=== PATIENT | female | born 2005 | race Caucasian/White ===

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

== ENCOUNTER → 2023-07-07 14:11 | Outpatient (BNVA) | payer BC, MEDICAID, SELFPAY | PROVIDERS: PCP Nurse Practitioner Family; Visit Provider Nurse Practitioner Family | DX: N92.6 Irregular menstruation, unspecified (principal) | CPT/HCPCS: 81025 ==

== ENCOUNTER 2024-02-26 21:07 | Inpatient (IN) | payer BC, MEDICAID, SELFPAY ==
[2024-02-26 19:30] VITALS: BMI 34.7
[2024-02-26 19:42] VITALS: BP 141/93; PULSE 96; TEMP 36.8
[2024-02-26 20:28] VITALS: BP 142/82; PULSE 83
[2024-02-26 20:48] VITALS: BP 135/93; PULSE 85
[2024-02-26 20:50] LABS: Nitrazine Paper, PH Positive
[2024-02-26 21:12] LABS: Basophils % 0.3 %; Eosinophils # 0.1 10^3/uL (0.0-0.8); Eosinophils % 0.5 %; Hematocrit 35.4 % (36-47); Lymphocytes # 1.7 10^3/uL (1.5-6.5); Lymphocytes % 16.5 %; Mean Corpuscular HGB Conc 33.3 g/dL (30-55); Mean Corpuscular Hemoglobin 28.1 pg (27-33); Mean Corpuscular Volume 84.3 fl (85-98); Mean Platelet Volume 11.8 fL (7.4-10.4); Monocytes # 0.9 10^3/uL (0.2-0.9); Monocytes % 8.5 %; Neutrophils # 7.35 10^3/uL (1.8-8.0); Neutrophils % 73.6 %; Nucleated Red Blood Cells % 0 %; Platelet Count 298 10^3/cmm (157-399); Red Cell Distribution Width 13.1 % (12.1-15.1); White Blood Count 9.99 10^3/uL (4.5-13.0)
[2024-02-26 21:39] VITALS: BP 138/83; PULSE 100
[2024-02-26] MEDS: miSOPROStol 100 mcg tablet 25 MCG SUBLINGUAL (21:39)
[2024-02-26 22:00] VITALS: BP 123/82; PULSE 84
[2024-02-26 23:23] VITALS: BP 133/79; PULSE 81
[2024-02-27] VITALS (37 sets, daily range): BP systolic 110–151; BP diastolic 60–90; PULSE 66–157; RESP 16–18; TEMP 36.7–36.9; O2SAT 97–99; BMI 11.5
[2024-02-27] MEDS: fentaNYL 50 mcg/mL INJ 2mL IVP (01:46)
[2024-02-27] MEDS: miSOPROStol 100 mcg tablet 25 MCG SUBLINGUAL (02:01)
[2024-02-27] MEDS: lactated ringers 1,000 ML 999 ML IV (02:45)
--- NOTE | 2024-02-27 03:42 | P.ANESASSM_ITS ---
Pre-Anesthetic Assessment Height/Weight: Height 1.78 m Weight 109.769 kg Temp Pulse Resp BP O2 Del Method 98.3 F 81 18 133/79 Room Air 02/26/24 19:42 02/26/24 23:23 02/27/24 01:46 02/26/24 23:23 02/26/24 20:40 Preop Diagnosis: labor pain epidural Was Beta Regi taken within 24 hours: N/A Was Clonidine taken within 24 hours: N/A Exam alert, oriented x 3, clear to auscultation bilaterally and regular rate & rhythm Airway Submandibular: within normal limits Cervical ROM: within normal limits Mallampati: Class II Dentition: full Pulmonary None reported CV/HEM None reported None reported Hepatic None reported GI Gastroesophageal Reflux Disease Metabolic None reported Musc/skel Scoliosis Neuropsych None reported Anesthetic Plan ASA status: 2 Anesthesia: Anesthesia Evaluation and Regional (specify below) Risk of > 500 ml blood loss (7ml/kg in children): No Medications/Allergies Home Medications Medication Instructions Recorded Confirmed Last Taken Type No Known Home Medications 04/05/23 02/26/24 Unknown History Allergies Allergy/AdvReac Type Severity Reaction Status Date / Time No Known Allergies Allergy Verified 02/26/24 22:07 Current Medications Generic Name Dose Route Start Last Admin Trade Name Freq PRN Reason Stop Dose Admin Fentanyl 25 - 100 mcg 02/27/24 01:24 02/27/24 01:46 Fentanyl 50 Mcg/Ml Inj 2ml IVP 25 mcg Q1H PRN Administration SEVERE PAIN Lactated Ringer's 1,000 mls @ 999 mls/hr 02/27/24 02:28 02/27/24 02:45 Lactated Ringers IV 999 mls/hr .Q1H1M PRN Administration See label comments Misoprostol 25 mcg 02/26/24 20:45 02/27/24 02:01 Misoprostol 100 Mcg Tablet SUBLINGUAL 02/27/24 04:46 25 mcg Q4H MICHELLE Administration PFSH Anesthesia Medical History No pertinent past medical history Surgical History No pertinent past surgical history Family History Other CAD (coronary artery disease) Diabetes Hyperlipidemia Hypertension Lung disease Stroke Denies family history of Colon cancer Ovarian cancer Prostate cancer Clotting disorder Dementia Heart disease Psychiatric illness Chronic kidney disease (CKD) Breast cancer Suicide Anesthesia complication Bleeding disorder Family history of premature coronary artery disease Uterine cancer Thyroid disease Female Reproductive History : 1 Data Anesthesia 02/26/24 21:00 Short CBC 02/26/24 Range/Units 21:00 WBC 9.99 (4.5-13.0) 10^3/uL Hgb 11.80 L (12.4-14.8) g/dL Hct 35.4 L (36-47) % MCV 84.3 L (85-98) fl Plt Count 298 (157-399) 10^3/cmm Neut % (Auto) 73.6 % Neut # (Auto) 7.35 (1.8-8.0) 10^3/uL Blood Bank 02/26/24 21:00 Blood Type O Positive Rho(D) Type Rh positive Antibody Screen Negative Cardiac Studies: 2 No Data to Display
[2024-02-27] MEDS: ROPivacaine premix 100 MG/50 ML PREMIX 13 MG EPIDURAL (04:05)
--- NOTE | 2024-02-27 04:10 | ANES.PROC ---
Anesthesia Procedures Procedure/Date: 02/27/24 epidural Procedure Narrative: epidural complete, bolus given, epidural pump initiated with BACKPACKERS MANAGER education given, vitals taken during procedure and satisfactory throughout, patient admits to decrease pain, report of procedure to OB RN Epidural: Time Out Performed: Yes Consents Signed: Procedure Consent Consent: requested by attending/covering physician, from patient, risks and benefits reviewed and patient agrees to proceed Lumbar Level: L3-L4 Epidural position: sitting Epidural procedure: sterile prep of area, 1% lidocaine to numb the area (3 mL), 18 g needle, negative for paresthesia passed, neg for paresthesia, test dose given, 1.5% xylocaine 1:200k epi (5 mL), 0.2% Ropivacaine bolus ml (5 mL), placed PCEA, no systemic response, sterile dressing applied, L.U.D. no apparent complications and 0.2% Ropiavacaine @ mls/hr (13 mL/hr)
[2024-02-27] MEDS: ondansetron 2 mg/ML SDV 2 mL 4 MG IVP (05:40)
[2024-02-27] MEDS: oxytocin 30 UNIT/500 ML BAG 600 UNIT IV (06:11)
--- NOTE | 2024-02-27 06:39 | PM.OPHPUD ---
Labor & Delivery H&P Update Date of Procedure: February 27, 2024 Date H&P Performed: 02/26/24 Changes to previous documentation: The patient had spontaneous rupture of membranes and was having inconsistent contractions Admission Diagnosis: 18-year-old 1 at 37 weeks estimated gestational age with spontaneous rupture membranes Preop diagnosis: labor pain Other information: The patient is a healthy 37-week female who presented to the hospital last night complaining that her membranes were ruptured around 7:00. She was checked and found to be grossly ruptured. Nitrazine was positive. As result she was admitted for presumed vaginal delivery. Her been unremarkable. Her blood type is O+. Her antibody screen was negative. She failed her 1 hour glucose screen but passed her 3-hour glucose screen. Her GBS status is negative. She is rubella nonimmune. The remainder of her infectious disease profile is within normal limits. Related Problem List Diagnoses (1) 37 weeks gestation of : (2) Spontaneous rupture of membranes: A&P Assessment and plan (1) 37 weeks gestation of : Due to her unfavorable cervix. Cytotec 25 mcg was placed. We will adjust augmentation based on her response to therapy. Status: Acute (2) Spontaneous rupture of membranes: Status: Acute
--- NOTE | 2024-02-27 06:43 | P.PCNOB_ITS ---
Delivery Note: Date of delivery: February 27, 2024 Pre-delivery diagnoses: 18-year-old 1 at 37 weeks estima ban gestational age History History History 1 Term Miscarriages/Ectopic Living Children A&P Assessment and plan (1) 37 weeks gestation of : (2) Spontaneous rupture of membranes: I anticipate routine care. (3) Spontaneous vaginal delivery: Coding Level of Care Code Acute Code for Chg Fwd Diagnoses 37 weeks gestation of Z3A.37 Spontaneous rupture of membranes Spontaneous vaginal delivery O80
[2024-02-27] MEDS: PRENATAL VIT NO.130/IRON/FOLIC 1 EACH TABLET PO (09:08)
[2024-02-27] MEDS: docusate sodium 100 mg Capsule PO ×2 (09:08→20:52)
[2024-02-27] MEDS: ibuprofen 800 mg tablet PO ×3 (09:08→20:52)
--- NOTE | 2024-02-27 14:55 | ANE.PACU2 ---
Inpatient post-anesthesia follow up: Vital signs: Temperature 98.1 F Pulse Rate 81 Respiratory Rate 18 Blood Pressure 125/74 Pulse Oximetry 99 Oxygen Delivery Me thod Room Air Oxygen Flow Rate Fraction of Inspir ed Oxygen Hydration adequate: Yes Nausea and vomiting: No Mental status: Baseline Additional Comments: no apparent anesthetic complications noted Epidural Start/End: Epidural Start Date: 02/27/24 Epidural Start Time: 03:55 Epidural End Date: 02/27/24 Epidural End Time: 08:45
[2024-02-27 18:27] LABS: Hematocrit 28.6 % (36-47); Mean Corpuscular HGB Conc 33.2 g/dL (30-55); Mean Corpuscular Hemoglobin 28.1 pg (27-33); Mean Corpuscular Volume 84.6 fl (85-98); Mean Platelet Volume 11.4 fL (7.4-10.4); Platelet Count 254 10^3/cmm (157-399); Red Blood Count 3.38 10^6/uL (3.85-5.65); Red Cell Distribution Width 13.2 % (12.1-15.1); White Blood Count 12.72 10^3/uL (4.5-13.0)
[2024-02-28 04:06] VITALS: BP 122/68; PULSE 82; RESP 16; TEMP 36.7; O2SAT 98
--- NOTE | 2024-02-28 08:00 | P.DS_ITS ---
Discharge Providers DIRECTOR SURGICAL Date of Admission: 02/26/24 21:07 Date of Discharge: 02/28/24 Attending Provider at Admission: Jase Norman MD Attending Provider at Discharge: Jase Norman MD Primary Care Provider: Vannessa Phoenix NP Diagnoses at Discharge Discharge Diagnosis (1) 37 weeks gestation of : Status: Acute (2) Spontaneous rupture of membranes: Status: Acute (3) Spontaneous vaginal delivery: Status: Acute Reason for Visit Reason for Visit: ctx, PROM Hospital Course Hospital Course The patient presented to the hospital with spontaneous rupture membranes. She was given Cytotec 25 mcg x 2 sublingual. She progressed to complete and had an unremarkable vaginal delivery. Her course was also been unremarkable. Her bleeding has been within normal limits. She has breast-fed well. Her pain is been well-controlled. There have been no concerns. Information Peripartum Data: Delivery Method: Vaginal Physical Exam Narrative: The patient is alert. She appears comfortable. Her heart has a regular rate and rhythm with no murmurs appreciated. Lungs are clear to auscultation bilaterally. Her fundus is firm and below the umbilicus. Urinary Catheter Management: Aguilera Latex: Cath Placed During This Visit: yes Urinary Catheter Date of Insertion: 02/27/24 Urinary Catheter Time of Insertion: 04:40 History History History 1 Term Miscarriages/Ectopic Living Children Discharge Data Studies Completed and Pending Laboratory Results WBC 12.72 10^3/uL (4.5-13.0) 02/27/24 18:07 RBC 3.38 10^6/uL (3.85-5.65) L 02/27/24 18:07 Hgb 9.50 g/dL (12.4-14.8) L 02/27/24 18:07 Hct 28.6 % (36-47) L 02/27/24 18:07 MCV 84.6 fl (85-98) L 02/27/24 18:07 MCH 28.1 pg (27-33) 02/27/24 18:07 MCHC 33.2 g/dL (30-55) 02/27/24 18:07 RDW 13.2 % (12.1-15.1) 02/27/24 18:07 Plt Count 254 10^3/cmm (157-399) 02/27/24 18:07 MPV 11.4 fL (7.4-10.4) H 02/27/24 18:07 Neut % (Auto) 73.6 % 02/26/24 21:00 Lymph % (Auto) 16.5 % 02/26/24 21:00 [place] % (Auto) 8.5 % 02/26/24 21:00 Eos % (Auto) 0.5 % 02/26/24 21:00 Baso % (Auto) 0.3 % 02/26/24 21:00 Neut # (Auto) 7.35 10^3/uL (1.8-8.0) 02/26/24 21:00 Lymph # (Auto) 1.7 10^3/uL (1.5-6.5) 02/26/24 21:00 [place] # (Auto) 0.9 10^3/uL (0.2-0.9) 02/26/24 21:00 Eos # (Auto) 0.1 10^3/uL (0.0-0.8) 02/26/24 21:00 Baso # (Auto) 0.0 10^3/uL (0.0-0.1) 02/26/24 21:00 Nucleated RBC % (auto) 0 % 02/26/24 21:00 Nucleated RBCs # 0.0 /100WBC 02/26/24 21:00 Fluid pH (paper) Positive H 02/26/24 19:40 Blood Type O Positive 02/26/24 21:00 Rho(D) Type Rh positive 02/26/24 21:00 Antibody Screen Negative 02/26/24 21:00 Vitals Last Vital Signs Temp 98.0 F 02/28/24 04:06 Pulse 82 02/28/24 04:06 Resp 16 02/28/24 04:06 BP 122/68 02/28/24 04:06 Pulse Ox 98 02/28/24 04:06 O2 Del Method Room Air 02/28/24 04:06 Results Labs OB ([facility]): Blood Type O Positive 02/26/24 Antibody Screen Negative 02/26/24 Hct 28.6 % (36-47) L 02/27/24 Hgb 9.50 g/dL (12.4-14.8) L 02/27/24 Rho(D) Type Rh positive 02/26/24 Plt Count 254 10^3/cmm (157-399) 02/27/24 HCG, Qual Positive (Negative) H 07/07/23 Discharge Plan Discharge Patient Disposition: Home Condition: Stable Prescriptions: New ibuprofen 800 mg Tablet 800 mg PO TID Qty: 45 0RF Vitamin 27 mg iron- 800 mcg Tablet 1 tab PO DAILY Qty: 90 0RF Discharge Orders: Discharge Order (Routine); Ordered 02/28/24 Ordered By: Jase Norman Referrals: Jase Norman MD [Physician] - 6 Weeks Discharge Diet: Usual diet Discharge Activity: Limit activity as instructed Patient Instructions: Opioid Safety Discharge Attestations DIRECTOR SURGICAL Time Spent in Discharge Care*: less than 30 min Coding Level of Care Code Acute Code for Chg Fwd Diagnoses 37 weeks gestation of Z3A.37 Spontaneous rupture of membranes Spontaneous vaginal delivery O80
[2024-02-28] MEDS: docusate sodium 100 mg Capsule PO (09:36)
[2024-02-28] MEDS: PRENATAL VIT NO.130/IRON/FOLIC 1 EACH TABLET PO (09:36)
[2024-02-28] MEDS: ibuprofen 800 mg tablet PO (09:36)
[2024-02-28] MEDS: measles,mumps,rubella pf Vial (w/diluent) 0.5 ML SUBCUT (10:09)
[2024-02-28 10:20] VITALS: BP 119/72; PULSE 77; TEMP 36.7
== END 2024-02-28 10:35 | disposition home or self-care (01) | DRG 807 ==
LOC: OPOB 21:12 → OBGYN 21:12
PROVIDERS: Admitting Provider Family Medicine; PCP Nurse Practitioner Family; Visit Provider Family Medicine
DX: O70.0 First degree perineal laceration during delivery (principal); Z37.0 Single live birth; Z3A.37 37 weeks gestation of pregnancy
CPT/HCPCS: 36415; 51702; 59025; 59409; 83986; 85025; 85027; 86850; 86900; 90707; 96372; 96374; 99211; J2405; J2590; J2795; J3010; J7120

== ENCOUNTER 2025-06-04 21:50 | Inpatient (IN) | payer BC, MEDICAID, SELFPAY ==
[2025-06-04] VITALS (23 sets, daily range): BP systolic 116–137; BP diastolic 68–88; PULSE 86–111; O2SAT 100; BMI 32.3
[2025-06-04 19:33] LABS: Nitrazine Paper, PH Inconclusive
--- NOTE | 2025-06-04 21:43 | PM.OPHPUD ---
Labor & Delivery H&P Update Date of Procedure: June 04, 2025 Date H&P Performed: 06/03/25 Changes to previous documentation: The patient presents with consistent contractions and cervical change Admission Diagnosis: 20-year-old 2 para 1-0-0-1 at 37 weeks estimated gestational age in active labor Planned procedure: Spontaneous vaginal delivery Other information: The patient is a pleasant healthy 37-week female infant presenting to the hospital in active labor. She received consistent care during her . There were no complications or problems during her . Her blood type is O+. Her antibody screen was negative. She passed her glucose screen. She is rubella immune. She was GBS negative. The remainder of her infectious disease profile was within normal limits. Related Problem List Diagnoses 1. 37 weeks gestation of : A&P Assessment and plan 1. 37 weeks gestation of : I anticipate routine labor and vaginal delivery Status: Acute PDMP PDMP Reviewed: Not Reviewed
[2025-06-04 21:57] LABS: Hematocrit 34.1 % (36-47); Hemoglobin 11.10 g/dL (11.27-16.99); Mean Corpuscular HGB Conc 32.6 g/dL (30-55); Mean Corpuscular Hemoglobin 26.0 pg (27-33); Mean Corpuscular Volume 79.9 fl (85-98); Nucleated Red Blood Cells % 0 %; Platelet Count 332 10^3/cmm (157-399); Red Blood Count 4.27 10^6/uL (3.85-5.65); White Blood Count 9.54 10^3/uL (3.29-11.43)
[2025-06-04] MEDS: ROPivacaine syringe 100 MG/50 ML SYRINGE 10 MG EPIDURAL (23:23)
--- NOTE | 2025-06-04 23:25 | P.ANESASSM_ITS ---
Pre-Anesthetic Assessment Height/Weight: Height 1.8 m Weight 105.233 kg Pulse BP Pulse Ox O2 Del Method 100 125/82 100 Room Air 06/04/25 23:21 06/04/25 23:21 06/04/25 23:21 06/04/25 21:53 Preop Diagnosis: epidural Familial anesthetic complications: none Was Beta Regi taken within 24 hours: N/A Last Intake: 12:00 Social No alcohol and No tobacco Exam alert, oriented x 3, clear to auscultation bilaterally and regular rate & rhythm Airway Cervical ROM: within normal limits Mallampati: Class II Dentition: full History/ROS No significant complaints Pulmonary None reported CV/HEM None reported None reported Hepatic None reported GI None reported Metabolic None reported Musc/skel None reported Neuropsych None reported Anesthetic Plan ASA status: 2 Anesthesia: Regional (specify below) (epidural) Risk of > 500 ml blood loss (7ml/kg in children): No Medications/Allergies Home Medications ?Medication ?Instructions ?Recorded ?Confirmed ?Last Taken ?Type vits no.130-ferrous fum 1 tab PO DAILY #90 ta bs 02/28/24 06/04/25 06/04/25 Rx 27 mg iron-folic acid 800 mcg tablet ( Vitamin) Allergies Allergy/AdvReac Type Severity Reaction Status Date / Time No Known Allergies Allergy Verified 06/04/25 19:39 Current Medications Generic Name Dose Route Start Last Admin Trade Name Freq PRN Reason Stop Dose Admin Dextrose/Lactated Ringer's 1,000 mls @ 125 mls/hr 06/04/25 22:00 06/04/25 23:22 Dextrose 5%-Lactated Ringers IV 125 mls/hr .Q8H MICHELLE Administration Sodium Chloride 1,000 mls @ 999 mls/hr 06/04/25 21:49 06/04/25 23:23 Sodium Chloride 0.9% IV Infused .Q1H1M PRN Infusion Per L&D Rescitation Protocol Ropivacaine 100 mg in 50 mls @ 10 mls/hr 06/04/25 22:00 06/04/25 23:23 Naropin Syringe EPIDURAL 10 mls/hr .Q5H MICHELLE Administration PFSH Anesthesia Medical History (Updated 06/04/25 @ 21:44 by Jase Norman MD) No pertinent past medical history Surgical History No pertinent past surgical history Family History Other CAD (coronary artery disease) Diabetes Hyperlipidemia Hypertension Lung disease Stroke Denies family history of Colon cancer Ovarian cancer Prostate cancer Clotting disorder Dementia Heart disease Psychiatric illness Chronic kidney disease (CKD) Breast cancer Suicide Anesthesia complication Bleeding disorder Family history of premature coronary artery disease Uterine cancer Thyroid disease Female Reproductive History : 2 Data Anesthesia 06/04/25 21:45 Short CBC 06/04/25 Range/Units 21:45 WBC 9.54 (3.29-11.43) 10^3/uL Hgb 11.10 L (11.27-16.99) g/dL Hct 34.1 L (36-47) % MCV 79.9 L (85-98) fl Plt Count 332 (157-399) 10^3/cmm Neut % (Auto) 73.8 % Neut # (Auto) 7.03 (1.8-7.7) 10^3/uL Blood Bank 06/04/25 21:45 Blood Type O Positive Rho(D) Type Rh positive Antibody Screen Negative Anesthesia Procedures Epidural Time Out Performed: Yes Consents Signed: Procedure Consent Consent: from patient Lumbar Level: L3-L4 Epidural position: sitting Epidural procedure: sterile prep of area, 1% lidocaine to numb the area, 18 g needle, negative for paresthesia passed, neg for paresthesia, test dose given, 1.5% xylocaine 1:200k epi, 0.2% Ropivacaine bolus ml (5), placed PCEA, no systemic response, sterile dressing applied, L.U.D. no apparent complications and 0.2% Ropiavacaine @ mls/hr (10) Additional Comments: TAZ @ 4cm
[2025-06-05] VITALS (36 sets, daily range): BP systolic 97–150; BP diastolic 57–89; PULSE 57–122; RESP 14–17; TEMP 36.4–36.7; O2SAT 98–99
[2025-06-05] MEDS: ondansetron 2 mg/ML SDV 2 mL 4 MG IVP (01:26)
[2025-06-05] MEDS: ROPivacaine syringe 100 MG/50 ML SYRINGE 10 MG EPIDURAL (02:15)
[2025-06-05] MEDS: oxytocin 30 UNIT/500 ML BAG 600 UNIT IV (05:13)
--- NOTE | 2025-06-05 05:54 | PM.DELIVERY ---
Delivery Note: Date of delivery: June 05, 2025 Pre-delivery diagnoses: 20-year-old 2 para 1-0-0-1 at 37 weeks estimated gestational age arriving in active labor Post-delivery diagnoses: Status post spontaneous vaginal delivery Procedure: Spontaneous vaginal delivery Delivering Physician: Jase Norman Estimated blood loss (mL): 75 Pre-Delivery Course: The patient arrived at the hospital in active labor. An epidural was placed. An amniotomy was performed. She then progressed complete without difficulty. Delivery: DELIVERY: The patient progressed to complete without difficulty. She delivered a male with a weight of 7 pounds 11 ounces with Apgars of 9, 10. The baby was delivered from the RUBEN position and placed on the mother's abdomen. The cord was then clamped and cut. There was no nuchal cord. There was no meconium. The placenta and 3 vessel cord were delivered intact shortly thereafter. The perineum and vaginal vault were carefully examined. No lacerations were noted. Both the mother and the baby were in stable condition. Post-Delivery Status: Good History History History 2 Term 2 0 Miscarriages/Ectopic 0 Living Children 2 A&P Assessment and plan 1. 37 weeks gestation of : I anticipate routine care. PDMP PDMP Reviewed: Not Reviewed Coding Level of Care Code Acute Code for Chg Fwd Diagnoses 37 weeks gestation of Z3A.37
[2025-06-05] MEDS: PRENATAL VIT NO.130/IRON/FOLIC 1 EACH TABLET PO (08:32)
--- NOTE | 2025-06-05 12:41 | ANE.PACU2 ---
Inpatient post-anesthesia follow up: Airway intact: Yes Vital signs: Temperature 98.0 F Pulse Rate 62 Respiratory Rate 17 Blood Pressure 130/77 Pulse Oximetry 100 Oxygen Delivery Me thod Room Air Oxygen Flow Rate Fraction of Inspir ed Oxygen Hydration adequate: Yes Nausea and vomiting: No Pain level: 1 Mental status: Baseline Epidural Start/End: Epidural Start Date: 06/04/25 Epidural Start Time: 23:07 Epidural End Date: 06/05/25 Epidural End Time: 06:45
[2025-06-05 17:27] LABS: Hematocrit 29.8 % (36-47); Hemoglobin 9.40 g/dL (11.27-16.99); Mean Corpuscular HGB Conc 31.5 g/dL (30-55); Mean Corpuscular Hemoglobin 25.6 pg (27-33); Mean Corpuscular Volume 81.2 fl (85-98); Platelet Count 248 10^3/cmm (157-399); Red Blood Count 3.67 10^6/uL (3.85-5.65); White Blood Count 10.43 10^3/uL (3.29-11.43)
[2025-06-05] MEDS: HYDROcodone-acetaminophen 5-325 mg Tablet PO (19:15)
[2025-06-06] MEDS: HYDROcodone-acetaminophen 5-325 mg Tablet PO (03:21)
[2025-06-06 04:45] VITALS: BP 123/78; PULSE 64; RESP 16; TEMP 36.6; O2SAT 98
--- NOTE | 2025-06-06 08:06 | P.DS_ITS ---
Discharge Providers COAGULATING OPERATOR Date of Admission: 06/04/25 21:50 Date of Discharge: 06/06/25 Attending Provider at Admission: Jase Norman MD Attending Provider at Discharge: Jase Norman MD Primary Care Provider: Vannessa Phoenix NP Diagnoses at Discharge Discharge Diagnosis 1. 37 weeks gestation of : Reason for Visit Reason for Visit: possible rupture of membranes, contractions Hospital Course Hospital Course The patient presented to the hospital in active labor. She progressed to com plete and had an unremarkable vaginal delivery of a healthy appearing male . She had no significant tears. Her bleeding was within normal limits. She bottle-fed her baby. Her pain was well-controlled. There were no concerns. Information Peripartum Data: Infant Delivery Method: Vaginal Physical Exam Narrative: The patient is alert. She appears comfortable. Her heart has a regular rate and rhythm with no murmurs appreciated. Lungs are clear to auscultation bilaterally. Her fundus is firm and below the umbilicus. Urinary Catheter Management: Aguilera: Cath Placed During This Visit: yes, but has since been removed by the nurse Reason for Continuing Indwelling Catheter: Decision to DC Catheter Urinary Catheter Date of Insertion: 06/04/25 Urinary Catheter Time of Insertion: 21:45 Date Urinary Catheter Removed: 06/05/25 Time Urinary Catheter Discontinued: 05:08 History History History 2 Term 2 0 Miscarriages/Ectopic 0 Living Children 2 Discharge Data Studies Completed and Pending Laboratory Results WBC 10.43 10^3/uL (3.29-11.43) 06/05/25 17:14 RBC 3.67 10^6/uL (3.85-5.65) L 06/05/25 17:14 Hgb 9.40 g/dL (11.27-16.99) L 06/05/25 17:14 Hct 29.8 % (36-47) L 06/05/25 17:14 MCV 81.2 fl (85-98) L 06/05/25 17:14 MCH 25.6 pg (27-33) L 06/05/25 17:14 MCHC 31.5 g/dL (30-55) 06/05/25 17:14 RDW 14.0 % (12.1-15.1) 06/05/25 17:14 Plt Count 248 10^3/cmm (157-399) 06/05/25 17:14 MPV 11.9 fL (7.4-10.4) H 06/05/25 17:14 Neut % (Auto) 73.8 % 06/04/25 21:45 Lymph % (Auto) 18.1 % 06/04/25 21:45 [place] % (Auto) 7.3 % 06/04/25 21:45 Eos % (Auto) 0.2 % 06/04/25 21:45 Baso % (Auto) 0.3 % 06/04/25 21:45 Neut # (Auto) 7.03 10^3/uL (1.8-7.7) 06/04/25 21:45 Lymph # (Auto) 1.7 10^3/uL (0.8-4.8) 06/04/25 21:45 [place] # (Auto) 0.7 10^3/uL (0.2-0.9) 06/04/25 21:45 Eos # (Auto) 0.0 10^3/uL (0.0-0.8) 06/04/25 21:45 Baso # (Auto) 0.0 10^3/uL (0.0-0.1) 06/04/25 21:45 Nucleated RBC % (auto) 0 % 06/04/25 21:45 Nucleated RBCs # 0.0 /100WBC 06/04/25 21:45 Insulin-like GF I Negative 06/04/25 20:10 Fluid pH (paper) Inconclusive 06/04/25 19:27 Blood Type O Positive 06/04/25 21:45 Rho(D) Type Rh positive 06/04/25 21:45 Antibody Screen Negative 06/04/25 21:45 Vitals Last Vital Signs Temp 97.8 F 06/06/25 04:45 Pulse 64 06/06/25 04:45 Resp 16 06/06/25 04:45 BP 123/78 06/06/25 04:45 Pulse Ox 98 06/06/25 04:45 O2 Del Method Room Air 06/06/25 04:45 Results Labs OB ([facility]): Blood Type O Positive 06/04/25 Antibody Screen Negative 06/04/25 Hct, (36-47) 29.8 % L 06/05/25 Hgb, (11.27-16.99) 9.40 g/dL L 06/05/25 Rho(D) Type Rh positive 06/04/25 Plt Count, (157-399) 248 10^3/cmm 06/05/25 Discharge Plan Discharge Patient Disposition: Home Condition: Stable Prescriptions: New ibuprofen 800 mg Tablet 800 mg PO TID Qty: 45 0RF Continued Vitamin 27 mg iron- 800 mcg Tablet 1 tab PO DAILY Qty: 90 0RF Discharge Order = DC NOW: Discharge Order (Routine); Ordered 06/06/25 Ordered By: Jase Norman Referrals: Jase Norman MD [Physician, Family Practice] - 4-7 days Discharge Diet: Usual diet Discharge Activity: Limit activity as instructed Patient Instructions: Depression (DC), Bleeding (DC), Preeclampsia and Eclampsia After Delivery (GEN), Hemorrhage (DC), OB Discharge Report, OB Food/Drug Interaction Guide, Opioid Safety, OB Home Care, OB Proud Parent Packet, OB Vaginal Deliveries, Patient Portal & Lucy Instructions Discharge Attestations COAGULATING OPERATOR Time Spent in Discharge Care*: less than 30 min Coding Level of Care Code Acute Code for Chg Fwd Diagnoses 37 weeks gestation of Z3A.37
[2025-06-06] MEDS: PRENATAL VIT NO.130/IRON/FOLIC 1 EACH TABLET PO (08:51)
[2025-06-06 10:54] VITALS: BP 132/78; PULSE 82; TEMP 36.6; O2SAT 98
== END 2025-06-06 10:33 | disposition home or self-care (01) | DRG 807 ==
PROVIDERS: Admitting Provider Family Medicine; PCP Nurse Practitioner Family; Visit Provider Family Medicine
DX: O80 Encounter for full-term uncomplicated delivery (principal); Z37.0 Single live birth; Z3A.37 37 weeks gestation of pregnancy
CPT/HCPCS: 36415; 51702; 59025; 59409; 83986; 84112; 85025; 85027; 86850; 86900; 99211; J2590; J2795; J7030; J7121; J9999